=== PATIENT | male | born 1995 | race Caucasian/White ===

== ENCOUNTER 2016-07-12 02:25 | Emergency (ER) | payer SELFPAY ==
[2016-07-12 03:23] VITALS: BP 133/82
== END 2016-07-12 03:23 | disposition home or self-care (01) ==
LOC: ED 02:25
DX: J02.9 Acute pharyngitis, unspecified (principal)
CPT/HCPCS: J0696

== ENCOUNTER 2017-04-14 14:00 | Emergency (ER) | payer SELFPAY ==
[~2017-04-14] VITALS: Ht 182.9 cm; Wt 103.0 kg
[2017-04-14 14:07] VITALS: Ht 182.9 cm; Wt 103.0 kg
[2017-04-14 17:12] LABS: BASOPHIL % 0.2 % (0-2); PLATELET COUNT 301 x10^3mcL (130-400); RED CELL DISTRIBUTION WIDTH 13.2 % (11.5-14.5)
[2017-04-14 17:14] LABS: CALCIUM 9.7 mg/dL (8.5-10.1); CARBON DIOXIDE 26.1 mmol/L (21-32); CHLORIDE SERUM 98 mmol/L (98-107); GFR1 > 60 mL/min; GLUCOSE SERUM 109 mg/dL (74-106); POTASSIUM SERUM 4.2 mmol/L (3.5-5.1); SODIUM SERUM 137 mmol/L (136-145)
[2017-04-14 17:18] LABS: ALBUMIN 4.4 g/dL (3.4-5.0); ALKALINE PHOSPHATASE 135 U/L (46-116); ALT/SGPT 101 U/L (16-63); AST/SGOT 31 U/L (15-37); BILIRUBIN TOTAL 0.7 mg/dL (0.20-1.00); MAGNESIUM 2.1 mg/dL (1.8-2.4); TOTAL PROTEIN, SERUM 8.4 g/dL (6.4-8.2)
[2017-04-14 18:51] VITALS: BP 145/81
[2017-04-14 19:11] LABS: AMPHETAMINE QUAL UR POSITIVE (NEG <=1000)
== END 2017-04-14 18:51 | disposition home or self-care (01) ==
LOC: ED 14:00
PROVIDERS: Emergency Medicine
DX: R53.1 Weakness (principal); F10.21 Alcohol dependence, in remission; F15.20 Other stimulant dependence, uncomplicated; R42 Dizziness and giddiness; R74.0 Nonspecific elevation of levels of transaminase and lactic acid dehydrogenase [LDH]
CPT/HCPCS: G0480; J3411; J3475; J3490; J7030

== ENCOUNTER 2017-06-05 21:10 | Emergency (ER) | payer SELFPAY ==
[~2017-06-05] VITALS: Ht 182.9 cm; Wt 102.0 kg
[2017-06-05 21:39] VITALS: Ht 182.9 cm; Wt 102.0 kg
[2017-06-05 23:38] VITALS: BP 142/85
== END 2017-06-05 23:38 | disposition home or self-care (01) ==
LOC: ED 21:10
DX: R42 Dizziness and giddiness (principal); F41.1 Generalized anxiety disorder; R53.1 Weakness; T43.625A Adverse effect of amphetamines, initial encounter
CPT/HCPCS: J2060

== ENCOUNTER 2017-07-22 11:00 | Emergency (ER) | payer SELFPAY ==
[~2017-07-22] VITALS: Ht 182.9 cm; Wt 101.6 kg
[2017-07-22 11:05] VITALS: Ht 182.9 cm; Wt 101.6 kg
[2017-07-22 14:27] LABS: AMPHETAMINE QUAL UR NONE DETECTED (See below)
[2017-07-22 14:30] LABS: BASOPHIL % 0.3 % (0-2); PLATELET COUNT 264 x10^3mcL (130-400); RED CELL DISTRIBUTION WIDTH 12.6 % (11.5-14.5)
[2017-07-22 14:47] LABS: ALBUMIN 4.1 g/dL (3.4-5.0); ALKALINE PHOSPHATASE 124 U/L (46-116); ALT/SGPT 39 U/L (16-63); AST/SGOT 15 U/L (15-37); BILIRUBIN TOTAL 0.9 mg/dL (0.20-1.00); CALCIUM 9.3 mg/dL (8.5-10.1); CARBON DIOXIDE 27.5 mmol/L (21-32); CHLORIDE SERUM 104 mmol/L (98-107); CREATININE SERUM 0.9 mg/dL (0.7-1.3); GFR1 > 60 mL/min; GLUCOSE SERUM 94 mg/dL (74-106); HDL CHOLESTEROL 36 mg/dL (40-60); POTASSIUM SERUM 4.4 mmol/L (3.5-5.1); SODIUM SERUM 140 mmol/L (136-145); TOTAL PROTEIN, SERUM 7.5 g/dL (6.4-8.2); TRIGLYCERIDES 146 mg/dL (<150)
[2017-07-22 14:49] LABS: FREE T4 0.97 ng/dL (0.76-1.46); FREE THYROXINE INDEX 2.3 ug/dL (1.4-4.5); T4(THYROXINE) 7.3 ug/dL (4.7-13.3)
[2017-07-22 14:52] LABS: CHOLESTEROL 246 mg/dL (<200); CHOLESTEROL/HDL RATIO 6.8
[2017-07-22 14:53] LABS: T3 TOTAL 1.22 ng/mL
[2017-07-22 15:29] VITALS: BP 131/92
== END 2017-07-22 15:29 | disposition home or self-care (01) ==
LOC: ED 11:00
PROVIDERS: Specialist
DX: F41.9 Anxiety disorder, unspecified (principal)
CPT/HCPCS: 36415; 84439; G0480